=== PATIENT | male | born 1995 | race Caucasian/White ===

== ENCOUNTER 2017-04-09 21:02 | Emergency (ER) | payer BC ==
[2017-04-09 21:08] VITALS: BP 121/52; PULSE 86; RESP 16; TEMP 99.1; O2SAT 97
--- NOTE | 2017-04-09 21:22 | EDPHY ---
H & P Stated Complaint: ST Time Seen by Provider: 04/09/17 21:20 - Personal History Current Tetanus/Diphtheria Vaccine: Yes Current Tetanus Diphtheria and Acellular Pertussis (TDAP): Yes - Medical/Surgical History Hx Asthma: No Hx Chronic Respiratory Disease: No Hx Diabetes: No Hx Cardiac Disease: No Hx Renal Disease: No Hx Cirrhosis: No Hx Alcoholism: No Hx HIV/AIDS: No Hx Splenectomy or Spleen Trauma: No Other PMH: strep throat, wisdom teeth - Social History Smoking Status: Current some day smoker Constitutional: Initial Vital Signs Temperature (C) 37.3 C 04/09/17 21:06 Heart Rate 86 04/09/17 21:06 Respiratory Rate 16 04/09/17 21:06 Blood Pressure 121/52 H 04/09/17 21:06 O2 Sat (%) 97 04/09/17 21:06 O2 Delivery Mode Room Air Allergies/Adverse Reactions: No Known Allergies Allergy (Unverified 04/09/17 21:05) Home Medications: Medication Instructions Recorded Amoxicillin/Clavulanate Pot 875 mg PO BID #20 tab 04/09/17 [Augmentin 875 MG TAB (RX)] predniSONE 40 mg PO DAILY #6 tab 04/09/17 Medical Decision Making ED Course/Re-evaluation: CHIEF COMPLAINT: Sore throat HISTORY OF PRESENT ILLNESS: The patient is a 21 y/o male complaining of a worsening sore throat for the last few days. He was cultured and had a positive strep test for which he has been taking prednisone and cephalexin. He feels like his tonsils are swollen and at times had some difficulty talking. He feels unimproved since antibiotic administration. He has a history of frequent throat infections. REVIEW OF SYSTEMS: A 10 point review of systems was performed and is negative with the exception of the elements mentioned in the history of present illness. PHYSICAL EXAM: HR, BP, O2 Sat, RR. Temp noted General Appearance: Alert, well hydrated, appropriate, and non-toxic appearing. Head: Atraumatic without scalp tenderness or obvious injury Eyes: Pupils equal, round, reactive to light and accommodation, EOMI, no trauma , no injection. Nose: Atraumatic, no rhinorrhea, clear. Throat: Pharyngeal erythema and exudates, no lesions, hypertrophic tonsils, mucus membranes moist. Hot-potato voice. No evidence of peritonsillar abscess. Neck: Supple, nontender, no lymphadenopathy. Respiratory: No distress Cardiovascular: Good capillary refill all extremities. Musculoskeletal: Normal active ROM of all extremities, atraumatic. Neurological: Alert, appropriate, and interactive. Nonfocal neuro exam. Skin: No rashes, good turgor, no nodules on palpation. Past medical history: Multiple strep throat infections. Past surgical history: Denies Family history: noncontributory Social history: [employer] student. From [place], [place] DIFFERENTIAL DIAGNOSIS: The differential diagnosis for the patient's symptoms included but was not limited to strep pharyngitis, viral pharyngitis, viral syndrome, meningitis, and sepsis. MEDICAL DECISION MAKING: This is an otherwise healthy 21 y/o male with a history of recurrent strep pharyngitis infection who presents with an unimproving pharyngitis despite antibiotic and steroid treatment. He has pharyngeal erythema and hypertrophic tonsils without evidence of an abscess on exam. No respiratory distress. Plan for treatment with Augmentin, prednisone, and referral to ENT. Return precautions given. He is comfortable with this plan. Departure - Departure Disposition: Home, Routine, Self-Care Clinical Impression: Strep pharyngitis Condition: Good Instructions: Pharyngitis (ED), Strep Throat (ED) Additional Instructions: 1. Take Augmentin as prescribed. Be sure to complete entire prescription even if you feel better. 2. Take prednisone as prescribed. 3. Follow up with Dr. Meeks, ENT, in the next week for evaluation of your recurrent throat infections. 4. Return to the ED for difficulty breathing, inability to swallow, fever, or other worsening of condition. Referrals: [facility] [Other] - As per Instructions Hunter Meeks MD [Medical Doctor] - As per Instructions Prescriptions: Amoxicillin/Clavulanate Pot [Augmentin 875 MG TAB (RX)] 875 mg PO BID #20 tab predniSONE 40 mg PO DAILY #6 tab Report Scribed for: Rodrigo Acosta Report Scribed by: Bhavani Armas Date of Report: 04/09/17 Time of Report: 21:27
[2017-04-09] MEDS ORDERED: predniSONE 20 MG TAB PO ONE (21:26)
[2017-04-09] MEDS ORDERED: AMOXICILLIN/CLAVULANATE POT 875/125 MG TAB PO ONE (21:26)
== END 2017-04-09 21:48 | disposition home or self-care (01) ==
DX: J02.0 Streptococcal pharyngitis (principal); F17.200 Nicotine dependence, unspecified, uncomplicated

== ENCOUNTER 2017-07-16 01:45 | Emergency (ER) | payer BC ==
--- NOTE | 2017-07-16 01:12 | EDPHY ---
H & P Stated Complaint: abd pain and nausea since 1500 yesterday, made himself vomit without relief Time Seen by Provider: 07/16/17 01:53 MDT HPI/ROS: HPI The patient presents with abdominal pain which began at about 2:00 p.m. yesterday afternoon after eating a hamburger and a lot today. The pain was mild at that time, he went out to dinner and drink a few glasses of wine. Afterwards the pain became worse. It is in the middle of his abdomen described as a rock sitting on him, has been constant, there is no radiation. He induced vomiting to see if this helped his symptoms, however it did not. He had a a normal bowel movement about 1 hour ago. He has had abdominal pains in the distant past. He has no abdominal operations.. REVIEW OF SYSTEMS Constitutional: No fever, no chills. Eyes: No discharge. ENT: No sore throat. Cardiovascular: No chest pain, no palpitations. Respiratory: No cough, no shortness of breath. Gastrointestinal: See HPI Genitourinary: No hematuria. Musculoskeletal: No back pain. Skin: No rashes. Neurological: No headache. PMHx: Healthy Soc Hx: College student PHYSICAL General Appearance: Alert, no distress Eyes: Pupils equal and round no pallor or injection ENT, Mouth: Mucous membranes moist, periorbital petechial hemorrhages Respiratory: There are no retractions, lungs are clear to auscultation Cardiovascular: Regular rate and rhythm Gastrointestinal: Abdomen is soft with mild periumbilical tenderness without rebound or guarding Neurological: A&O, moves all extremities Skin: Warm and dry, no rashes Musculoskeletal: Neck is supple non tender Extremities: symmetrical, full range of motion Psychiatric: Patient is oriented X 3, there is no agitation Source: Patient Exam Limitations: No limitations - Personal History Current Tetanus/Diphtheria Vaccine: Yes - Medical/Surgical History Hx Asthma: No Hx Chronic Respiratory Disease: No Hx Diabetes: No Hx Cardiac Disease: No Hx Renal Disease: No Hx Cirrhosis: No Hx Alcoholism: No Hx HIV/AIDS: No Hx Splenectomy or Spleen Trauma: No Other PMH: PMHx: strep throat. PSHx: wisdom teeth - Social History Smoking Status: Current some day smoker Constitutional: Initial Vital Signs Temperature (C) 36.8 C 07/16/17 01:47 MDT Heart Rate 64 07/16/17 01:47 MDT Respiratory Rate 16 07/16/17 01:47 MDT Blood Pressure 138/50 H 07/16/17 01:47 MDT O2 Sat (%) 99 07/16/17 01:47 MDT O2 Delivery Mode Room Air Allergies/Adverse Reactions: No Known Allergies Allergy (Unverified 04/09/17 21:05) Home Medications: Medication Instructions Recorded Herbals/Supplements -Info Only 07/16/17 Medical Decision Making Differential Diagnosis: 22-year-old male with several hours of mid abdominal pain. Differential diagnosis includes gastritis, gastroenteritis, appendicitis, pancreatitis. In the emergency department, patient was given IV fluids for presumed volume depletion, Pepcid and Maalox. This improved his symptoms significantly. Labs were checked and did reveal a mild leukocytosis. He was re-examined and had no tenderness in the right lower quadrant. I have discussed with him the possibility of early appendicitis and we have discussed return precautions including worsening pain, right lower quadrant pain, vomiting, fever. He is able to return if the symptoms manifest themselves. He will be discharged home with presumed diagnosis of gastritis. - Data Points Laboratory Results: Laboratory Results 07/16/17 01:10 [facility] 07/16/17 01:10 [facility] 07/16/17 07/16/17 07/16/17 01:21 [facility] 01:10 [facility] 01:10 [facility] WBC 12.00 10^3/uL H 10^3/uL (3.80-9.50) RBC 5.04 10^6/uL 10^6/uL (4.40-6.38) Hgb 16.1 g/dL g/dL (13.7-17.5) Hct 44.2 % % (40.0-51.0) MCV 87.7 fL fL (81.5-99.8) MCH 31.9 pg pg (27.9-34.1) MCHC 36.4 g/dL g/dL (32.4-36.7) RDW 11.9 % % (11.5-15.2) Plt Count 197 10^3/uL 10^3/uL (150-400) MPV 9.5 fL fL (8.7-11.7) Neut % (Auto) 78.3 % H % (39.3-74.2) Lymph % (Auto) 13.2 % L % (15.0-45.0) [place] % (Auto) 6.3 % % (4.5-13.0) Eos % (Auto) 1.6 % % (0.6-7.6) Baso % (Auto) 0.3 % % (0.3-1.7) Nucleat RBC Rel Count 0.0 % % (0.0-0.2) Absolute Neuts (auto) 9.39 10^3/uL H 10^3/uL (1.70-6.50) Absolute Lymphs (auto) 1.58 10^3/uL 10^3/uL (1.00-3.00) Absolute Monos (auto) 0.76 10^3/uL 10^3/uL (0.30-0.80) Absolute Eos (auto) 0.19 10^3/uL 10^3/uL (0.03-0.40) Absolute Basos (auto) 0.04 10^3/uL 10^3/uL (0.02-0.10) Absolute Nucleated RBC 0.00 10^3/uL 10^3/uL (0-0.01) Immature Gran % 0.3 % % (0.0-1.1) Immature Gran # 0.04 10^3/uL 10^3/uL (0.00-0.10) Sodium 139 mEq/L mEq/L (134-144) Potassium 3.8 mEq/L mEq/L (3.5-5.2) Chloride 104 mEq/L mEq/L (97-110) Carbon Dioxide 22 mEq/l mEq/l (22-31) Anion Gap 13 mEq/L mEq/L (8-16) BUN 14 mg/dL mg/dL (7-23) Creatinine 0.9 mg/dL mg/dL (0.7-1.3) Estimated GFR > 60 Glucose 100 mg/dL mg/dL (70-100) Calcium 9.8 mg/dL mg/dL (8.5-10.4) Total Bilirubin 0.6 mg/dL mg/dL (0.1-1.4) Conjugated Bilirubin 0.1 mg/dL mg/dL (0.0-0.5) Unconjugated Bilirubin 0.5 mg/dL mg/dL (0.0-1.1) AST 30 IU/L IU/L (17-59) ALT 47 IU/L IU/L (21-72) Alkaline Phosphatase 48 IU/L IU/L (38-126) Total Protein 7.1 g/dL g/dL (6.3-8.2) Albumin 4.7 g/dL g/dL (3.5-5.0) Lipase 85 IU/L IU/L (23-300) Urine Color YELLOW Urine Appearance CLEAR Urine pH 6.0 (5.0-7.5) Ur Specific [place] 1.020 (1.002-1.030) Urine Protein NEGATIVE (NEGATIVE) Urine Ketones 1+ H (NEGATIVE) Urine Blood NEGATIVE (NEGATIVE) Urine Nitrate NEGATIVE (NEGATIVE) Urine Bilirubin NEGATIVE (NEGATIVE) Urine Urobilinogen NEGATIVE EU EU (0.2-1.0) Ur Leukocyte Esterase NEGATIVE (NEGATIVE) Urine Glucose NEGATIVE (NEGATIVE) Medications Given: Discontinued Medications Al Hydroxide/Mg Hydroxide (Maalox Susp) 30 ml PO ONCE ONE Stop: 07/16/17 01:06 [facility] Last Admin: 07/16/17 01:16 [facility] Dose: 30 ml Famotidine (Pepcid) 20 mg IVP EDNOW ONE Stop: 07/16/17 01:21 [facility] Last Admin: 07/16/17 01:22 [facility]ST Dose: 20 mg Sodium Chloride (Ns) 1,000 mls @ 0 mls/hr IV EDNOW ONE; Wide Open PRN Reason: Protocol Stop: 07/16/17 01:06 [facility] Last Admin: 07/16/17 01:16 [facility] Dose: 1,000 mls Famotidine/Sodium Chloride (Pepcid 20 Mg (Premix)) 50 mls @ 200 mls/hr IV EDNOW ONE Stop: 07/16/17 01:19 [facility] Last Admin: 07/16/17 01:23 MST Dose: Not Given Ketorolac Tromethamine (Toradol) 15 mg IVP EDNOW ONE Stop: 07/16/17 01:06 [facility] Last Admin: 07/16/17 01:16 M[facility] Dose: 15 mg Ondansetron HCl (Zofran) 4 mg IVP EDNOW ONE Stop: 07/16/17 01:06 [facility] Last Admin: 07/16/17 01:17 MST Dose: 4 mg Departure - Departure Disposition: Home, Routine, Self-Care Clinical Impression: Abdominal pain Condition: Good Instructions: Acute Abdominal Pain (ED) Additional Instructions: Please return to the emergency department if your worse in any way. If you develop any pain in the right lower part of your abdomen, vomiting, fever, you should return immediately. In the meantime, please drink clear liquids until your feeling better, then you can try some bland foods. Referrals: [facility] [Other] - As per Instructions
--- NOTE | 2017-07-16 01:12 | EDPHY ---
H & P Stated Complaint: abd pain and nausea since 1500 yesterday, made himself vomit without relief Time Seen by Provider: 07/16/17 01:53 MDT HPI/ROS: HPI The patient presents with abdominal pain which began at about 2:00 p.m. yesterday afternoon after eating a hamburger and a lot today. The pain was mild at that time, he went out to dinner and drink a few glasses of wine. Afterwards the pain became worse. It is in the middle of his abdomen described as a rock sitting on him, has been constant, there is no radiation. He induced vomiting to see if this helped his symptoms, however it did not. He had a a normal bowel movement about 1 hour ago. He has had abdominal pains in the distant past. He has no abdominal operations.. REVIEW OF SYSTEMS Constitutional: No fever, no chills. Eyes: No discharge. ENT: No sore throat. Cardiovascular: No chest pain, no palpitations. Respiratory: No cough, no shortness of breath. Gastrointestinal: See HPI Genitourinary: No hematuria. Musculoskeletal: No back pain. Skin: No rashes. Neurological: No headache. PMHx: Healthy Soc Hx: College student PHYSICAL General Appearance: Alert, no distress Eyes: Pupils equal and round no pallor or injection ENT, Mouth: Mucous membranes moist, periorbital petechial hemorrhages Respiratory: There are no retractions, lungs are clear to auscultation Cardiovascular: Regular rate and rhythm Gastrointestinal: Abdomen is soft with mild periumbilical tenderness without rebound or guarding Neurological: A&O, moves all extremities Skin: Warm and dry, no rashes Musculoskeletal: Neck is supple non tender Extremities: symmetrical, full range of motion Psychiatric: Patient is oriented X 3, there is no agitation Source: Patient Exam Limitations: No limitations - Personal History Current Tetanus/Diphtheria Vaccine: Yes - Medical/Surgical History Hx Asthma: No Hx Chronic Respiratory Disease: No Hx Diabetes: No Hx Cardiac Disease: No Hx Renal Disease: No Hx Cirrhosis: No Hx Alcoholism: No Hx HIV/AIDS: No Hx Splenectomy or Spleen Trauma: No Other PMH: PMHx: strep throat. PSHx: wisdom teeth - Social History Smoking Status: Current some day smoker Constitutional: Initial Vital Signs Temperature (C) 36.8 C 07/16/17 01:47 MDT Heart Rate 64 07/16/17 01:47 MDT Respiratory Rate 16 07/16/17 01:47 MDT Blood Pressure 138/50 H 07/16/17 01:47 MDT O2 Sat (%) 99 07/16/17 01:47 MDT O2 Delivery Mode Room Air Allergies/Adverse Reactions: No Known Allergies Allergy (Unverified 04/09/17 21:05) Home Medications: Medication Instructions Recorded Herbals/Supplements -Info Only 07/16/17 Medical Decision Making Differential Diagnosis: 22-year-old male with several hours of mid abdominal pain. Differential diagnosis includes gastritis, gastroenteritis, appendicitis, pancreatitis. In the emergency department, patient was given IV fluids for presumed volume depletion, Pepcid and Maalox. This improved his symptoms significantly. Labs were checked and did reveal a mild leukocytosis. He was re-examined and had no tenderness in the right lower quadrant. I have discussed with him the possibility of early appendicitis and we have discussed return precautions including worsening pain, right lower quadrant pain, vomiting, fever. He is able to return if the symptoms manifest themselves. He will be discharged home with presumed diagnosis of gastritis. - Data Points Laboratory Results: Laboratory Results 07/16/17 01:10 [facility] 07/16/17 01:10 [facility] 07/16/17 07/16/17 07/16/17 01:21 [facility] 01:10 [facility] 01:10 [facility] WBC 12.00 10^3/uL H 10^3/uL (3.80-9.50) RBC 5.04 10^6/uL 10^6/uL (4.40-6.38) Hgb 16.1 g/dL g/dL (13.7-17.5) Hct 44.2 % % (40.0-51.0) MCV 87.7 fL fL (81.5-99.8) MCH 31.9 pg pg (27.9-34.1) MCHC 36.4 g/dL g/dL (32.4-36.7) RDW 11.9 % % (11.5-15.2) Plt Count 197 10^3/uL 10^3/uL (150-400) MPV 9.5 fL fL (8.7-11.7) Neut % (Auto) 78.3 % H % (39.3-74.2) Lymph % (Auto) 13.2 % L % (15.0-45.0) [place] % (Auto) 6.3 % % (4.5-13.0) Eos % (Auto) 1.6 % % (0.6-7.6) Baso % (Auto) 0.3 % % (0.3-1.7) Nucleat RBC Rel Count 0.0 % % (0.0-0.2) Absolute Neuts (auto) 9.39 10^3/uL H 10^3/uL (1.70-6.50) Absolute Lymphs (auto) 1.58 10^3/uL 10^3/uL (1.00-3.00) Absolute Monos (auto) 0.76 10^3/uL 10^3/uL (0.30-0.80) Absolute Eos (auto) 0.19 10^3/uL 10^3/uL (0.03-0.40) Absolute Basos (auto) 0.04 10^3/uL 10^3/uL (0.02-0.10) Absolute Nucleated RBC 0.00 10^3/uL 10^3/uL (0-0.01) Immature Gran % 0.3 % % (0.0-1.1) Immature Gran # 0.04 10^3/uL 10^3/uL (0.00-0.10) Sodium 139 mEq/L mEq/L (134-144) Potassium 3.8 mEq/L mEq/L (3.5-5.2) Chloride 104 mEq/L mEq/L (97-110) Carbon Dioxide 22 mEq/l mEq/l (22-31) Anion Gap 13 mEq/L mEq/L (8-16) BUN 14 mg/dL mg/dL (7-23) Creatinine 0.9 mg/dL mg/dL (0.7-1.3) Estimated GFR > 60 Glucose 100 mg/dL mg/dL (70-100) Calcium 9.8 mg/dL mg/dL (8.5-10.4) Total Bilirubin 0.6 mg/dL mg/dL (0.1-1.4) Conjugated Bilirubin 0.1 mg/dL mg/dL (0.0-0.5) Unconjugated Bilirubin 0.5 mg/dL mg/dL (0.0-1.1) AST 30 IU/L IU/L (17-59) ALT 47 IU/L IU/L (21-72) Alkaline Phosphatase 48 IU/L IU/L (38-126) Total Protein 7.1 g/dL g/dL (6.3-8.2) Albumin 4.7 g/dL g/dL (3.5-5.0) Lipase 85 IU/L IU/L (23-300) Urine Color YELLOW Urine Appearance CLEAR Urine pH 6.0 (5.0-7.5) Ur Specific [place] 1.020 (1.002-1.030) Urine Protein NEGATIVE (NEGATIVE) Urine Ketones 1+ H (NEGATIVE) Urine Blood NEGATIVE (NEGATIVE) Urine Nitrate NEGATIVE (NEGATIVE) Urine Bilirubin NEGATIVE (NEGATIVE) Urine Urobilinogen NEGATIVE EU EU (0.2-1.0) Ur Leukocyte Esterase NEGATIVE (NEGATIVE) Urine Glucose NEGATIVE (NEGATIVE) Medications Given: Discontinued Medications Al Hydroxide/Mg Hydroxide (Maalox Susp) 30 ml PO ONCE ONE Stop: 07/16/17 01:06 [facility] Last Admin: 07/16/17 01:16 MST Dose: 30 ml Famotidine (Pepcid) 20 mg IVP EDNOW ONE Stop: 07/16/17 01:21 [facility] Last Admin: 07/16/17 01:22 [facility]ST Dose: 20 mg Sodium Chloride (Ns) 1,000 mls @ 0 mls/hr IV EDNOW ONE; Wide Open PRN Reason: Protocol Stop: 07/16/17 01:06 [facility] Last Admin: 07/16/17 01:16 MST Dose: 1,000 mls Famotidine/Sodium Chloride (Pepcid 20 Mg (Premix)) 50 mls @ 200 mls/hr IV EDNOW ONE Stop: 07/16/17 01:19 [facility] Last Admin: 07/16/17 01:23 MST Dose: Not Given Ketorolac Tromethamine (Toradol) 15 mg IVP EDNOW ONE Stop: 07/16/17 01:06 [facility] Last Admin: 07/16/17 01:16 MST Dose: 15 mg Ondansetron HCl (Zofran) 4 mg IVP EDNOW ONE Stop: 07/16/17 01:06 [facility] Last Admin: 07/16/17 01:17 MST Dose: 4 mg Departure - Departure Disposition: Home, Routine, Self-Care Clinical Impression: Abdominal pain Condition: Good Instructions: Acute Abdominal Pain (ED) Additional Instructions: Please return to the emergency department if your worse in any way. If you develop any pain in the right lower part of your abdomen, vomiting, fever, you should return immediately. In the meantime, please drink clear liquids until your feeling better, then you can try some bland foods. Referrals: [facility] [Other] - As per Instructions
--- NOTE | 2017-07-16 01:12 | EDPHY ---
H & P Stated Complaint: abd pain and nausea since 1500 yesterday, made himself vomit without relief Time Seen by Provider: 07/16/17 01:53 MDT HPI/ROS: HPI The patient presents with abdominal pain which began at about 2:00 p.m. yesterday afternoon after eating a hamburger and a lot today. The pain was mild at that time, he went out to dinner and drink a few glasses of wine. Afterwards the pain became worse. It is in the middle of his abdomen described as a rock sitting on him, has been constant, there is no radiation. He induced vomiting to see if this helped his symptoms, however it did not. He had a a normal bowel movement about 1 hour ago. He has had abdominal pains in the distant past. He has no abdominal operations.. REVIEW OF SYSTEMS Constitutional: No fever, no chills. Eyes: No discharge. ENT: No sore throat. Cardiovascular: No chest pain, no palpitations. Respiratory: No cough, no shortness of breath. Gastrointestinal: See HPI Genitourinary: No hematuria. Musculoskeletal: No back pain. Skin: No rashes. Neurological: No headache. PMHx: Healthy Soc Hx: College student PHYSICAL General Appearance: Alert, no distress Eyes: Pupils equal and round no pallor or injection ENT, Mouth: Mucous membranes moist, periorbital petechial hemorrhages Respiratory: There are no retractions, lungs are clear to auscultation Cardiovascular: Regular rate and rhythm Gastrointestinal: Abdomen is soft with mild periumbilical tenderness without rebound or guarding Neurological: A&O, moves all extremities Skin: Warm and dry, no rashes Musculoskeletal: Neck is supple non tender Extremities: symmetrical, full range of motion Psychiatric: Patient is oriented X 3, there is no agitation Source: Patient Exam Limitations: No limitations - Personal History Current Tetanus/Diphtheria Vaccine: Yes - Medical/Surgical History Hx Asthma: No Hx Chronic Respiratory Disease: No Hx Diabetes: No Hx Cardiac Disease: No Hx Renal Disease: No Hx Cirrhosis: No Hx Alcoholism: No Hx HIV/AIDS: No Hx Splenectomy or Spleen Trauma: No Other PMH: PMHx: strep throat. PSHx: wisdom teeth - Social History Smoking Status: Current some day smoker Constitutional: Initial Vital Signs Temperature (C) 36.8 C 07/16/17 01:47 MDT Heart Rate 64 07/16/17 01:47 MDT Respiratory Rate 16 07/16/17 01:47 MDT Blood Pressure 138/50 H 07/16/17 01:47 MDT O2 Sat (%) 99 07/16/17 01:47 MDT O2 Delivery Mode Room Air Allergies/Adverse Reactions: No Known Allergies Allergy (Unverified 04/09/17 21:05) Home Medications: Medication Instructions Recorded Herbals/Supplements -Info Only 07/16/17 Medical Decision Making Differential Diagnosis: 22-year-old male with several hours of mid abdominal pain. Differential diagnosis includes gastritis, gastroenteritis, appendicitis, pancreatitis. In the emergency department, patient was given IV fluids for presumed volume depletion, Pepcid and Maalox. This improved his symptoms significantly. Labs were checked and did reveal a mild leukocytosis. He was re-examined and had no tenderness in the right lower quadrant. I have discussed with him the possibility of early appendicitis and we have discussed return precautions including worsening pain, right lower quadrant pain, vomiting, fever. He is able to return if the symptoms manifest themselves. He will be discharged home with presumed diagnosis of gastritis. - Data Points Laboratory Results: Laboratory Results 07/16/17 01:10 [facility] 07/16/17 01:10 [facility] 07/16/17 07/16/17 07/16/17 01:21 [facility] 01:10 [facility] 01:10 [facility] WBC 12.00 10^3/uL H 10^3/uL (3.80-9.50) RBC 5.04 10^6/uL 10^6/uL (4.40-6.38) Hgb 16.1 g/dL g/dL (13.7-17.5) Hct 44.2 % % (40.0-51.0) MCV 87.7 fL fL (81.5-99.8) MCH 31.9 pg pg (27.9-34.1) MCHC 36.4 g/dL g/dL (32.4-36.7) RDW 11.9 % % (11.5-15.2) Plt Count 197 10^3/uL 10^3/uL (150-400) MPV 9.5 fL fL (8.7-11.7) Neut % (Auto) 78.3 % H % (39.3-74.2) Lymph % (Auto) 13.2 % L % (15.0-45.0) [place] % (Auto) 6.3 % % (4.5-13.0) Eos % (Auto) 1.6 % % (0.6-7.6) Baso % (Auto) 0.3 % % (0.3-1.7) Nucleat RBC Rel Count 0.0 % % (0.0-0.2) Absolute Neuts (auto) 9.39 10^3/uL H 10^3/uL (1.70-6.50) Absolute Lymphs (auto) 1.58 10^3/uL 10^3/uL (1.00-3.00) Absolute Monos (auto) 0.76 10^3/uL 10^3/uL (0.30-0.80) Absolute Eos (auto) 0.19 10^3/uL 10^3/uL (0.03-0.40) Absolute Basos (auto) 0.04 10^3/uL 10^3/uL (0.02-0.10) Absolute Nucleated RBC 0.00 10^3/uL 10^3/uL (0-0.01) Immature Gran % 0.3 % % (0.0-1.1) Immature Gran # 0.04 10^3/uL 10^3/uL (0.00-0.10) Sodium 139 mEq/L mEq/L (134-144) Potassium 3.8 mEq/L mEq/L (3.5-5.2) Chloride 104 mEq/L mEq/L (97-110) Carbon Dioxide 22 mEq/l mEq/l (22-31) Anion Gap 13 mEq/L mEq/L (8-16) BUN 14 mg/dL mg/dL (7-23) Creatinine 0.9 mg/dL mg/dL (0.7-1.3) Estimated GFR > 60 Glucose 100 mg/dL mg/dL (70-100) Calcium 9.8 mg/dL mg/dL (8.5-10.4) Total Bilirubin 0.6 mg/dL mg/dL (0.1-1.4) Conjugated Bilirubin 0.1 mg/dL mg/dL (0.0-0.5) Unconjugated Bilirubin 0.5 mg/dL mg/dL (0.0-1.1) AST 30 IU/L IU/L (17-59) ALT 47 IU/L IU/L (21-72) Alkaline Phosphatase 48 IU/L IU/L (38-126) Total Protein 7.1 g/dL g/dL (6.3-8.2) Albumin 4.7 g/dL g/dL (3.5-5.0) Lipase 85 IU/L IU/L (23-300) Urine Color YELLOW Urine Appearance CLEAR Urine pH 6.0 (5.0-7.5) Ur Specific Gallagher 1.020 (1.002-1.030) Urine Protein NEGATIVE (NEGATIVE) Urine Ketones 1+ H (NEGATIVE) Urine Blood NEGATIVE (NEGATIVE) Urine Nitrate NEGATIVE (NEGATIVE) Urine Bilirubin NEGATIVE (NEGATIVE) Urine Urobilinogen NEGATIVE EU EU (0.2-1.0) Ur Leukocyte Esterase NEGATIVE (NEGATIVE) Urine Glucose NEGATIVE (NEGATIVE) Medications Given: Discontinued Medications Al Hydroxide/Mg Hydroxide (Maalox Susp) 30 ml PO ONCE ONE Stop: 07/16/17 01:06 [facility] Last Admin: 07/16/17 01:16 MST Dose: 30 ml Famotidine (Pepcid) 20 mg IVP EDNOW ONE Stop: 07/16/17 01:21 [facility] Last Admin: 07/16/17 01:22 MST Dose: 20 mg Sodium Chloride (Ns) 1,000 mls @ 0 mls/hr IV EDNOW ONE; Wide Open PRN Reason: Protocol Stop: 07/16/17 01:06 MST Last Admin: 07/16/17 01:16 MST Dose: 1,000 mls Famotidine/Sodium Chloride (Pepcid 20 Mg (Premix)) 50 mls @ 200 mls/hr IV EDNOW ONE Stop: 07/16/17 01:19 [facility] Last Admin: 07/16/17 01:23 MST Dose: Not Given Ketorolac Tromethamine (Toradol) 15 mg IVP EDNOW ONE Stop: 07/16/17 01:06 MST Last Admin: 07/16/17 01:16 MST Dose: 15 mg Ondansetron HCl (Zofran) 4 mg IVP EDNOW ONE Stop: 07/16/17 01:06 MST Last Admin: 07/16/17 01:17 MST Dose: 4 mg Departure - Departure Disposition: Home, Routine, Self-Care Clinical Impression: Abdominal pain Condition: Good Instructions: Acute Abdominal Pain (ED) Additional Instructions: Please return to the emergency department if your worse in any way. If you develop any pain in the right lower part of your abdomen, vomiting, fever, you should return immediately. In the meantime, please drink clear liquids until your feeling better, then you can try some bland foods. Referrals: IGOR TALLEY [Other] - As per Instructions
[2017-07-16 01:19] LABS: PLATELET COUNT 197 10^3/uL (150-400)
[~2017-07-16 01:45] MED LIST: FAMOTIDINE 20 MG/2 ML SDV IVP ONE; FAMOTIDINE 20 MG/2 ML SDV ONE; FAMOTIDINE 20 MG/NACL 50 ML IV ONE; KETOROLAC 30 MG/1 ML SDV IVP ONE; MAG HYDROX/AL HYDROX/SIMETH 30 ML UDCUP PO ONE; NS 1,000 ML IV ONE; ONDANSETRON 4 MG/2 ML VIAL IVP ONE
[2017-07-16 01:50] VITALS: RESP 16
[2017-07-16 02:40] VITALS: BP 130/75; PULSE 70; TEMP 97.9; O2SAT 96
== END 2017-07-16 02:57 | disposition home or self-care (01) ==
DX: R10.33 Periumbilical pain (principal); E86.9 Volume depletion, unspecified; F17.200 Nicotine dependence, unspecified, uncomplicated
CPT/HCPCS: 96374; J1885; J2405

== ENCOUNTER 2017-07-16 09:34 | Day surgery (SDC) | payer BC ==
[~2017-07-16 09:34] MED LIST changes: -FAMOTIDINE 20 MG/2 ML SDV IVP ONE; -FAMOTIDINE 20 MG/2 ML SDV ONE; -FAMOTIDINE 20 MG/NACL 50 ML IV ONE; -KETOROLAC 30 MG/1 ML SDV IVP ONE; -MAG HYDROX/AL HYDROX/SIMETH 30 ML UDCUP PO ONE; -NS 1,000 ML IV ONE; -ONDANSETRON 4 MG/2 ML VIAL IVP ONE; +OXYCODONE/APAP 5/325 TAB PO SCH
[2017-07-16] MEDS ORDERED: fentaNYL 100 MCG/2 ML INJ IVP ONE ×2 (10:00→10:02)
[2017-07-16 10:08] LABS: % IMMATURE GRANULYOCYTES 0.3 % (0.0-1.1); ABSOLUTE IMMATURE GRANULOCYTES 0.03 10^3/uL (0.00-0.10); ADD DIFF? NO; ADD MORPH? NO; ADD SCAN? NO; ATYPICAL LYMPHOCYTE FLAG 0 (0-99); FRAGMENT RBC FLAG 0 (0-99); HEMATOCRIT 44.5 % (40.0-51.0); HEMOGLOBIN 15.8 g/dL (13.7-17.5); LEFT SHIFT FLG 0 (0-99); LIPEMIA HEMOLYSIS FLAG 90 (0-99); MEAN CELL HEMOGLOBIN 31.3 pg (27.9-34.1); MEAN CELL HEMOGLOBIN CONCENTR. 35.5 g/dL (32.4-36.7); MEAN CELL VOLUME 88.3 fL (81.5-99.8); MEAN PLATELET VOLUME 9.4 fL (8.7-11.7); PLATELET CLUMPS FLAG 20 (0-99); PLATELET COUNT 204 10^3/uL (150-400); RED BLOOD CELL COUNT 5.04 10^6/uL (4.40-6.38)
[2017-07-16] MEDS ORDERED: IOPAMIDOL (ISOVUE-300) 100 ML BTL ONE (10:08)
[2017-07-16] MEDS: NS 1,000 ML IV ONE ×2 (10:12→10:26)
[2017-07-16 10:26] LABS: ALANINE AMINOTRANSFERASE 39 IU/L (21-72); ALBUMIN 4.3 g/dL (3.5-5.0); ALKALINE PHOSPHATASE 47 IU/L (38-126); ANION GAP 12 mEq/L (8-16); ASPARTATE AMINOTRANSFERASE 23 IU/L (17-59); BILIRUBIN,TOTAL 1.3 mg/dL (0.1-1.4); BILIRUBIN-CONJUGATED 0.1 mg/dL (0.0-0.5); BILIRUBIN-UNCONJUGATED 1.2 mg/dL (0.0-1.1); CALCIUM 9.6 mg/dL (8.5-10.4); CARBON DIOXIDE 24 mEq/l (22-31); CHLORIDE 104 mEq/L (97-110); CREATININE 0.9 mg/dL (0.7-1.3); GLOMERULAR FILTRATION RATE > 60; GLUCOSE 98 mg/dL (70-100); POTASSIUM 3.9 mEq/L (3.5-5.2); SODIUM 140 mEq/L (134-144); TOTAL PROTEIN 6.6 g/dL (6.3-8.2)
[2017-07-16] MEDS ORDERED: ERTAPENEM 1 GM in NS 100 ML IV ONE (11:09)
[2017-07-16] MEDS ORDERED: HYDROmorphONE/DILAUDID 1 MG/ML INJ IVP ONE (11:53)
--- NOTE | 2017-07-16 13:28 | PDGENHP ---
History & Physical Chief Complaint: ABD PAIN History of Present Illness: MALE WITH 18 HRS RLQ PAIN AND ANOREXIA, NO EMESIS OR DIARHEA OR FEVER/ WBC 11K/ CT 10MM APPE WITH 2 APPENDICOLITHS. ADMIT FOR LAP APPE/ RISKS AND OPTIONS FULLY DISCUSSED Pertinent Past, Social, Family History: PHX: WISDOM TEETH. NKA. MEDS NONE. ROS- 10 PT REVIEW. FAM HX NON CONTRIB Relevant Physical Exam: HEALTHY, AFEBRILE. HEENT WNL. CHEST CLEAR. COR RR. ABD: TENDER RLQ WITH REBOUND AND GUARDING. GEN OK. EXTREM: FULL PULSES, FULL ROM. SKIN OK Cardiorespiratory Assessment: IMP: ACUTE APPE. PLAN: LAP APPE, RISKS AND OPTIONS FULLY DISCUSSED
[2017-07-16] MEDS ORDERED: PROPOFOL/EMULSION 500 MG/50 ML BOTTLE IV ONE (13:41)
[2017-07-16] MEDS ORDERED: fentaNYL 250 MCG/5 ML INJ ONE (13:42)
[2017-07-16] MEDS ORDERED: MIDAZOLAM 2 MG/2 ML VIAL ONE (13:55)
[2017-07-16] MEDS ORDERED: MIDAZOLAM 2 MG/2 ML VIAL IVP ONE (13:55)
--- NOTE | 2017-07-16 13:56 | PDANEPAE ---
ANE History of Present Illness 22 year old for savannah BEATRIZ Past Medical History - Pulmonary History Hx Oxygen in Use at Home: No Hx Sleep Apnea: No - Endocrine History Hx Diabetes: No ANE Review of Systems Review of Systems: ANE Patient History - Allergies Allergies/Adverse Reactions: No Known Allergies Allergy (Verified 07/16/17 09:40) - Home Medications Home Medications: Herbals/Supplements -Info Only 07/16/17 [Last Taken Unknown] - NPO status NPO Since - Liquids (Date): 07/15/17 NPO Since - Liquids (Time): 23:00 NPO Since - Solids (Date): 07/15/17 NPO Since - Solids (Time): 23:00 - Smoking Hx Smoking Status: Current some day smoker ANE Labs/Vital Signs - Labs Result Diagrams: 07/16/17 10:00 07/16/17 10:00 - Vital Signs Blood Pressure: 118/68 Heart Rate: 58 Respiratory Rate: 16 O2 Sat (%): 96 Height: 175.26 cm Weight: 65.771 kg ANE Physical Exam - Airway Mallampati Score: Class 2 Mouth exam: normal dental/mouth exam - Pulmonary Pulmonary: no respiratory distress - Cardiovascular Cardiovascular: regular rate and rhythym - ASA Status ASA Status: I, E
[2017-07-16] MEDS ORDERED: BUPIVACAINE 0.5% 30 ML SDV ONE (14:03)
[2017-07-16] MEDS ORDERED: PROMETHAZINE HCL 25 MG/ML INJ IVP PRN (14:13)
[2017-07-16] MEDS ORDERED: METOCLOPRAMIDE 10 MG/2 ML VIAL IVP PRN (14:13)
[2017-07-16] MEDS ORDERED: HYDROCODONE/APAP 5/325 TAB PO PRN (14:13)
[2017-07-16] MEDS ORDERED: ACETAMINOPHEN 500 MG TAB PO PRN (14:13)
[2017-07-16] MEDS ORDERED: ONDANSETRON 4 MG/2 ML VIAL IVP PRN ×2 (14:13→16:55)
[2017-07-16] MEDS ORDERED: LABETALOL HCL 50 MG/10 ML SYR IVP PRN (14:13)
[2017-07-16] MEDS ORDERED: DEXAMETHASONE 4 MG/ML VIAL IVP PRN (14:13)
[2017-07-16] MEDS ORDERED: MEPERIDINE 25 MG/ML SYR IVP PRN (14:13)
[2017-07-16] MEDS ORDERED: HYDROmorphONE/DILAUDID 1 MG/ML INJ IVP PRN ×2 (14:13→16:55)
[2017-07-16] MEDS ORDERED: LR 500 ML IV PRN (14:13)
[2017-07-16] MEDS ORDERED: OXYCODONE/APAP 5/325 TAB PO PRN ×2 (14:13→16:55)
[2017-07-16] MEDS ORDERED: fentaNYL 100 MCG/2 ML INJ IVP PRN (14:13)
[2017-07-16] MEDS ORDERED: ALBUTEROL 3 ML DEYVIAL IH PRN (14:13)
[2017-07-16] MEDS ORDERED: NALOXONE HCL 0.4 MG/ML INJ IVP PRN (14:13)
--- NOTE | 2017-07-16 14:59 | POSTANESTH ---
Post Anesthetic Evaluation Respiratory Status: Normal, Stable Level of Consciousness/Mental Status: Mildly Sleepy, Arousable Pain Control: Adequate, Prn Tx Ordered Nausea/Vomiting Control: Adequate, Prn Tx Ordered Complications Possibly Related to Anesthesia: None Noted
[2017-07-16 15:00] VITALS: TEMP 98.6
[2017-07-16] MEDS ORDERED: fentaNYL 100 MCG/2 ML INJ ONE (15:12)
[2017-07-16] MEDS ORDERED: OXYCODONE/APAP 5/325 TAB ONE ×2 (15:27→18:08)
[2017-07-16 15:37] VITALS: PULSE 68; RESP 1
--- NOTE | 2017-07-16 16:31 | POSTOPPROG ---
Post Op Note Date of Operation: 07/16/17 Surgeon: Fady Matamoros Anesthesiologist: nely Anesthesia: GET(General Endotracheal) Pre-op Diagnosis: acute appe Post-op Diagnosis: same Indication: pain Procedure: lap appe Findings: acute nonperforated appendicitis Inf/Abcess present in the surg proc area at time of surgery?: Yes Depth: Organ Space EBL: Minimal Complications: 0 Specimen(s): appendix
[2017-07-16] MEDS ORDERED: D5W 1/2 NS W/ 20 KCl/L 1,000 ML IV SCH (17:00)
[2017-07-16] MEDS ORDERED: KETOROLAC 15 MG/1 ML SDV IVP SCH (18:00)
[2017-07-16] MEDS ORDERED: KETOROLAC 15 MG/1 ML SDV ONE (18:08)
[2017-07-16 18:50] VITALS: BP 120/49; O2SAT 94
[2017-07-17] MEDS ORDERED: ERTAPENEM 1 GM in NS 100 ML IV SCH ×4 (09:00)
--- NOTE | 2017-07-17 09:40 | EDPHY ---
H & P Stated Complaint: abd pain seen last night for same Time Seen by Provider: 07/16/17 09:58 HPI/ROS: Chief complaint: Abdominal pain History of present illness: This is a 22-year-old male who returns to the emergency department for re-evaluation of abdominal pain. Patient was seen in this emergency department last night. She states since being discharged home pain has worsened. It remains in the lower aspect of the abdomen diffusely. He denies precipitating factors. He denies any alleviating factors. He denies other associated signs or symptoms. Review of systems: A 10 point review of systems was obtained and other than described above was negative - Personal History Current Tetanus/Diphtheria Vaccine: Yes - Medical/Surgical History Hx Asthma: No Hx Chronic Respiratory Disease: No Hx Diabetes: No Hx Cardiac Disease: No Hx Renal Disease: No Hx Cirrhosis: No Hx Alcoholism: No Hx HIV/AIDS: No Hx Splenectomy or Spleen Trauma: No Other PMH: PMHx: strep throat. PSHx: wisdom teeth - Social History Smoking Status: Current some day smoker - Physical Exam Exam: General Appearance: Alert, unwell appearing. Eyes: Pupils equal and round no pallor or injection. ENT, Mouth: Mucous membranes moist. Respiratory: There are no retractions, lungs are clear to auscultation. Cardiovascular: Regular rate and rhythm. Gastrointestinal: Bowel sounds are normal. There is diffuse tenderness lower quadrants bilaterally. Patient is guarding. Neurological: Alert and oriented x4. Strength and sensation intact and symmetrical. Skin: Warm and dry, no rashes. Musculoskeletal: Neck is supple non tender. Extremities are symmetrical, full range of motion. Psychiatric: Patient is oriented X 3, there is no agitation. Constitutional: Initial Vital Signs Temperature (C) 36.7 C 07/16/17 09:40 Heart Rate 62 07/16/17 09:40 Respiratory Rate 16 07/16/17 09:40 Blood Pressure 110/53 L 07/16/17 09:40 O2 Sat (%) 96 07/16/17 09:40 O2 Delivery Mode Nasal Cannula O2 (L/minute) 2 Allergies/Adverse Reactions: No Known Allergies Allergy (Verified 07/16/17 09:40) Home Medications: Medication Instructions Recorded NK [No Known Home Meds] 07/16/17 Medical Decision Making ED Course/Re-evaluation: Patient seen under the supervision of my primary supervising physician Dr. Karen Robbins. Patient presents to the emergency department for recheck of worsening abdominal pain. Given worsening of symptoms a CT scan is pursued, patient appears to have acute appendicitis. Dr. Jonathan Matamoros is consulted. We have started the patient on Invanz 1 g IV. He will be taken to the OR for further evaluation and care. Plan has been discussed with the patient who voiced understanding and agreement with it. Differential Diagnosis: Included but not limited to appendicitis, colitis, diverticulitis, gastritis, gastroenteritis - Data Points Laboratory Results: Laboratory Results 07/16/17 10:00 07/16/17 10:00 Medications Given: Ketorolac Tromethamine (Toradol) 15 mg IVP Q6 JOSHUA Stop: 07/21/17 17:59 Last Admin: 07/16/17 18:11 Dose: 15 mg Discontinued Medications Bupivacaine HCl (Sensorcaine 0.5% Vial) Confirm Administered Dose 30 ml .ROUTE .STK-MED ONE Stop: 07/16/17 14:04 Last Admin: 07/16/17 14:37 Dose: 20 ml Fentanyl (Sublimaze) 50 mcg IVP EDNOW ONE Stop: 07/16/17 10:01 Last Admin: 07/16/17 10:06 Dose: 100 mcg Fentanyl (Sublimaze) 100 mcg IVP EDNOW ONE Stop: 07/16/17 10:03 Last Admin: 07/16/17 11:08 Dose: 100 mcg Fentanyl (Sublimaze) 25 - 100 mcg IVP Q5M PRN PRN Reason: PACU, IMMEDIATE Pain control Stop: 07/16/17 15:14 Last Admin: 07/16/17 15:13 Dose: 50 mcg Hydromorphone HCl (Dilaudid) 1 mg IVP EDNOW ONE Stop: 07/16/17 11:54 Last Admin: 07/16/17 12:04 Dose: 1 mg Sodium Chloride (Ns) 1,000 mls @ 0 mls/hr IV EDNOW ONE; Wide Open PRN Reason: Protocol Stop: 07/16/17 10:03 Last Admin: 07/16/17 10:26 Dose: 1,000 mls Ertapenem 1 gm/ Sodium (Chloride) 100 mls @ 200 mls/hr IV EDNOW ONE PRN Reason: Protocol Stop: 07/16/17 11:38 Last Admin: 07/16/17 11:32 Dose: 100 mls Midazolam HCl (Versed) 2 mg IVP ONCALL ONE Stop: 07/16/17 13:56 Last Admin: 07/16/17 13:59 Dose: 2 mg Oxycodone/Acetaminophen (Percocet 5/325) 1 - 2 tab PO Q4HRS PRN PRN Reason: PACU, Pain Severe Stop: 07/16/17 15:13 Last Admin: 07/16/17 15:30 Dose: 1 tab Departure - Departure Disposition: To OP Cath/Surgery Clinical Impression: Acute appendicitis Qualifiers: Acute appendicitis type: unspecified acute appendicitis type Qualified Code(s) : K35.80 - Unspecified acute appendicitis Condition: Fair
--- NOTE | 2017-07-30 13:07 | GOP ---
[f rep st] OPERATIVE REPORT DATE OF OPERATION: 07/16/2017 SURGEON: Fady Matamoros MD BELLOWS FILLER: There was no periodicals library assistant. ANESTHESIOLOGIST: Chey Schumacher MD PREOPERATIVE DIAGNOSIS: Acute appendicitis. POSTOPERATIVE DIAGNOSIS: Acute appendicitis. PROCEDURE PERFORMED: Laparoscopic appendectomy. FINDINGS: Patient was found to have acute nonperforated appendicitis. DESCRIPTION OF PROCEDURE: Patient was taken to the operating room where he received a satisfactory g eneral endotracheal anesthesia by Dr. Schumacher. He was placed in the supine position, prepped and drap ed in the usual sterile fashion. A periumbilical incision was made. A Veress needle was inserted. Pneumoperitoneum was established. Trocar was introduced. Good visualization was obtained. Two othe r trocars were placed in the lower abdomen under direct vision. The appendix was freed up from filmy adhesions in the lateral abdominal wall. It was elevated up. The mesoappendix was divided with the Harmonic scalpel until the base was skeletonized. It was then divided with the Endo-MANJIT stapler, dean shanae in a specimen bag and extracted through the upper midline port site. Hemostasis was assured. Th e wound was irrigated. Trocars were removed under direct vision. Trocar sites were closed with 0 Amrit ryl for the fascia, 4-0 Monocryl subcuticular stitch for the skin. All layers were infiltrated with 0.5% Marcaine. Blood loss less than 5 mL. No complications. He was taken to the recovery room in g ood condition. /[id number]/MODL
== END 2017-07-16 18:30 | disposition home or self-care (01) ==
LOC: UNDOADMOB 13:09 → INTOOBSV 13:09 → FSGY 14:00 → UNDODISOB 18:45
PROVIDERS: ATTEND Surgery
PROC: 0DTJ4ZZ Resection of Appendix, Percutaneous Endoscopic Approach (ICD-10-PCS; principal; 2017-07-16 14:00)
DX: K35.80 Unspecified acute appendicitis (principal); F17.210 Nicotine dependence, cigarettes, uncomplicated
CPT/HCPCS: 96365; J1170; J1335; J1885; J2250; J2704; J3010; Q9967

== ENCOUNTER 2018-01-26 21:25 | Emergency (ER) | payer BC ==
--- NOTE | 2018-01-26 21:34 | EDPHY ---
H & P Stated Complaint: fever, sore throat, body aches x4 days Source: Patient Exam Limitations: No limitations - Personal History Current Tetanus Diphtheria and Acellular Pertussis (TDAP): Yes - Medical/Surgical History Hx Asthma: No Hx Chronic Respiratory Disease: No Hx Diabetes: No Hx Cardiac Disease: No Hx Renal Disease: No Hx Cirrhosis: No Hx Alcoholism: No Hx HIV/AIDS: No Hx Splenectomy or Spleen Trauma: No Other PMH: PMHx: strep throat. PSHx: wisdom teeth - Social History Smoking Status: Current some day smoker Time Seen by Provider: 01/26/18 21:32 HPI/ROS: HPI: This is a 22-year-old male who presents with Chief Complaint: fever, sore throat Location: throat Quality: sore Duration: 4 days Signs and Symptoms: + fever TMax 104 oral F, no nausea, no vomiting, no diarrhea , no urinary symptoms, no chest pain, no shortness of breath, no wheezing, no cough, + sore throat, no neck stiffness, no joint pain, + swollen glands, no ear pain, no rash, + tonsil exudate Timing: Rapid onset, worsening Severity: 02/18 Context: Patient reports that he has had a sore throat, fever, white exudate on his tonsils for the last 4 days. Reports that it was sudden onset and it has been gradually worsening. He reports that his throat feels sore and has some discomfort with swallowing certain foods. He is drinking fluids without difficulty. He was diagnosed with strep pharyngitis 2 months ago and given amoxicillin for 10 days. He reports that this will be the 3rd time that he has had strep pharyngitis this year. Denies any neck stiffness/nausea/vomiting/ cough. He is taking Tylenol with transient relief of fever. Modifying Factors: Comment: ROS: see HPI Constitutional: + fever, no chills, no weight loss Eyes: No blurred vision Respiratory: No shortness of breath, no cough Cardiovascular: No chest pain, no palpitations Gastrointestinal: No nausea, no vomiting, no diarrhea, no hematemesis, no blood in stool Genitourinary: No dysuria, no blood in urine Extremities: No myalgias, no edema Neurologic: No weakness, no numbness Skin: No rashes, no petechiae Hematologic: No bruising, no bleeding MEDICAL/SURGICAL/SOCIAL HISTORY: Medical history: Generally healthy. Does not take any regular medications. Surgical history: Clio teeth removed Social history: Family history noncontributory. CONSTITUTIONAL: Nontoxic-appearing polite and cooperative young adult white male, awake and alert, no obvious distress HEENT: Atraumatic and normocephalic, PERRL, EOMI. Nares patent; no rhinorrhea; no nasal mucosal edema. Tympanic membranes clear. Oropharynx clear, tonsils 2 + with moderate erythema; uvula midline; + white exudate and moist pink mucosa. Airway patent. + spotty anterior cervical lymphadenopathy. No meningismus. Cardiovascular: Normal S1/S2, mild tachycardia, regular rhythm, without murmur rub or gallop. PULMONARY/CHEST: Symmetrical and nontender. Clear to auscultation bilaterally. Good air movement. No accessory muscle usage. ABDOMEN: Soft, nondistended, nontender, no rebound, no guarding, no peritoneal signs, no masses or organomegaly. No CVAT. EXTREMITIES: 2/2 pulses, strength 5/5, no deformities, no clubbing, no cyanosis or edema. NEUROLOGICAL: no focal neuro deficits. GCS 15. SKIN: Warm and dry, no erythema. no rash. Good capillary refill. (Kusum Eckert) Constitutional: Initial Vital Signs Temperature (C) 38 C 01/26/18 21:26 Heart Rate 112 H 01/26/18 21:26 Respiratory Rate 16 01/26/18 21:26 Blood Pressure 137/65 H 01/26/18 21:26 O2 Sat (%) 95 01/26/18 21:26 O2 Delivery Mode Room Air Allergies/Adverse Reactions: No Known Allergies Allergy (Verified 07/16/17 09:40) Home Medications: Medication Instructions Recorded Cephalexin [Keflex (*)] 500 mg PO BID 10 Days cap 01/26/18 Medical Decision Making ED Course/Re-evaluation: Strep test positive Given p.o. Decadron 8 mg, 15 mL of viscous lidocaine, Percocet and Keflex Patient has no signs of tonsillar abscess/airway compromise/Jose G's angina Advised continue supportive care. Modified Centor score= 4; recommended to treat with antibiotics 1. Age Range: 15-44 years=0 2. Exudate or swelling on tonsils: Yes 3. Tender/swollen anterior cervical lymph nodes: Yes 4. Temp greater than 30 degree C: Yes 5. Cough: Present=0 Absent=Yes Prescription for Keflex 500 mg twice daily x7 days provided. This patient was seen under the supervision of my secondary supervising physician. I evaluated care for this patient independently. (Kusum Eckert) Differential Diagnosis: Differential diagnosis includes but is not limited to upper respiratory infection, viral pharyngitis, streptococcal pharyngitis, infectious mononucleosis, influenza. (Kusum Eckert) Other Provider: PHYSICIAN DOCUMENTATION: The patient was evaluated and managed by the Physician Warehouse Delivery Manager. My co- signature indicates that I have reviewed this chart and I agree with the findings and plan of care as documented. I am the secondary supervising physician. (Narciso Fuentes) - Data Points Laboratory Results: 01/26/18 01/26/18 Unknown 21:30 Group A Strep Screen NEGATIVE (NEGATIVE) Group A Strep DNA Pending Medications Given: Discontinued Medications Hydrocodone Bitart/Acetaminophen ([place] 5/325) 1 tab PO EDNOW ONE Stop: 01/26/18 21:39 Last Admin: 01/26/18 21:44 Dose: 1 tab Cephalexin (Keflex 500 Mg Prepack#4) 1 btl TAKEHOME EDNOW ONE PRN Reason: Protocol Stop: 01/26/18 21:47 Last Admin: 01/26/18 21:55 Dose: 1 btl Dexamethasone (Decadron) 8 mg PO EDNOW ONE Stop: 01/26/18 21:39 Last Admin: 01/26/18 21:44 Dose: 8 mg Lidocaine (Lidocaine 2% Viscous) 15 ml PO EDNOW ONE Stop: 01/26/18 21:39 Last Admin: 01/26/18 21:44 Dose: 15 ml Departure - Departure Disposition: Home, Routine, Self-Care Clinical Impression: Pharyngitis, streptococcal, acute, Streptococcal tonsillitis Condition: Good Instructions: Cephalexin (By mouth), Strep Throat (ED) Additional Instructions: Consume a minimum of 8-10 glasses of water or electrolyte fluid replacement drinks that include Gatorade, Powerade, Pedialyte. Eat a bland diet for the next 48 hours and then slowly advance as tolerated. Take Keflex 500 mg twice daily times 10 days. Take Tylenol 650 mg every 4 hr and/or ibuprofen 600 mg every 8 hr as needed for pain, fever. Return to the ER immediately if you cannot swallow, have drooling, fevers, neck stiffness, cannot open your jaw, or any other symptoms that concern you. Referrals: IGOR TALLEY [Other] - As per Instructions Prescriptions: Cephalexin [Keflex (*)] 500 mg PO BID 10 Days cap
[2018-01-26] MEDS ORDERED: DEXAMETHASONE 4 MG TAB PO ONE (21:38)
[2018-01-26] MEDS ORDERED: LIDOCAINE 2% VISCOUS 15 ML UDCUP PO ONE (21:38)
[2018-01-26] MEDS ORDERED: HYDROCODONE/APAP 5/325 TAB PO ONE (21:38)
[2018-01-26] MEDS ORDERED: CEPHALEXIN 500MG PREPACK#4 BTL TAKEHOME ONE (21:46)
[2018-01-26 22:00] VITALS: BP 139/56
[2018-01-27 10:19] LABS: GROUP A STREP DNA (THROAT) POSITIVE (NEGATIVE)
== END 2018-01-26 21:59 | disposition home or self-care (01) ==
DX: J03.00 Acute streptococcal tonsillitis, unspecified (principal); F17.200 Nicotine dependence, unspecified, uncomplicated